=== PATIENT | female | born 1950 | race Caucasian/White ===

== ENCOUNTER 2017-04-13 19:56 | Emergency (ER) | payer MEDICARE, BC ==
[2017-04-13 20:06] VITALS: BP 177/78
--- NOTE | 2017-04-13 20:28 | UC ---
Ear Complaint HPI - HPI Summary HPI Summary: 66 year old female presents with complains of left facial erythema, tingling, eye swelling and scalp sensitivity. I will send her to the ER to rule out facial shingles. - History of Current Complaint Stated Complaint: EAR PAIN Time Seen by Provider: 04/13/17 20:01 Hx Obtained From: Patient Onset/Duration: Sudden Onset Severity Initially: Moderate Severity Currently: Moderate Pain Scale Used: 0-10 Numeric - 5 Aggravating Factors: Nothing Alleviating Factors: Nothing - Allergies/Home Medications Allergies/Adverse Reactions: Allergies Allergy/AdvReac Type Severity Reaction Status Date / Time No Known Allergies Allergy Verified 04/13/17 20:06 Home Medications: Home Medications Atenolol TAB* [Tenormin TAB* 50 MG] 100 mg PO DAILY 04/13/17 [History Confirmed 04/13/17] Hydrochlorothiazide TAB* [Hydrodiuril TAB*] 12.5 mg PO DAILY 04/13/17 [History Confirmed 04/13/17] Lisinopril TAB* [Prinivil TAB*] 40 mg PO DAILY 04/13/17 [History Confirmed 04/13] Pravastatin (NF) [Pravachol (NF)] 20 mg PO DAILY 04/13/17 [History Confirmed 09/28] PMH/Surg Hx/FS Hx/Imm Hx Previously Healthy: Yes - Family History Known Family History: Positive: None - Social History Alcohol Use: None Substance Use Type: None Review of Systems Constitutional: Negative Skin: Other - left facial/scalp/eye erythema, tingling, pain Eyes: Negative ENT: Negative Respiratory: Negative Cardiovascular: Negative Gastrointestinal: Negative Genitourinary: Negative Motor: Negative Neurovascular: Negative Musculoskeletal: Negative Neurological: Negative Psychological: Negative All Other Systems Reviewed And Are Negative: Yes Physical Exam Triage Information Reviewed: Yes Eye Exam: Normal ENT Exam: Normal Dental Exam: Normal Neck exam: Normal Neck: Positive: 1 Respiratory Exam: Normal Cardiovascular Exam: Normal Abdominal Exam: Normal Musculoskeletal Exam: Normal Neurological Exam: Normal Psychological Exam: Normal Skin: Positive: rashes - left facial/scalp/eye erythema, tingling, pain Ear Complaint Course/Dx - Differential Dx/Diagnosis Provider Diagnoses: left eye shingles Discharge - Discharge Plan Condition: Stable Disposition: HOME Patient Education Materials: [place] (ED) Referrals: Sae Wilkins MD [Primary Care Provider] - Additional Instructions: PATIENT SUGGESTED TO GO TO [facility] FOR Ophthalmology CONSULT TO RULE OUT ophthalmic herpes . On a side note I spoke to Dr Yi.
== END 2017-04-13 21:05 | disposition home or self-care (01) ==
LOC: UCCORT 19:56
DX: B02.30 Zoster ocular disease, unspecified (principal)
CPT/HCPCS: 99202; G0463

== ENCOUNTER 2018-10-21 14:31 | Emergency (ER) | payer MEDICARE, BC ==
[2018-10-21 14:57] VITALS: BP 178/89
--- NOTE | 2018-10-21 15:57 | UC ---
Skin Complaint HPI - HPI Summary HPI Summary: 68-year-old female comes in with a chief complaint of a laceration to her right knee. Patient was shaving in the shower this morning and she cut her right leg on the lateral aspect of the knee. Is an area that has varicose veins. Patient had a hard time stopping the bleeding. She's done direct pressure she applied a T shirt tied around it. Most recent dressing has kept it from bleeding she wonders if it needs any sutures. Not on any blood thinners. Feels well otherwise. - History of Current Complaint Chief Complaint: [place] Time Seen by Provider: 10/21/18 15:41 Stated Complaint: SKIN COMPLAINT (CUT LEG WHILE SHAVING) Pain Intensity: 0 - Allergy/Home Medications Allergies/Adverse Reactions: Allergies Allergy/AdvReac Type Severity Reaction Status Date / Time No Known Allergies Allergy Verified 10/21/18 14:57 PMH/Surg Hx/FS Hx/Imm Hx Previously Healthy: Yes Endocrine History: Dyslipidemia Cardiovascular History: Hypertension - Surgical History Surgical History: Yes Surgery Procedure, Year, and Place: x2 C sections - Family History Known Family History: Positive: None - Social History Alcohol Use: None Substance Use Type: None Smoking Status (MU): Never Smoked Tobacco Review of Systems All Other Systems Reviewed And Are Negative: Yes Constitutional: Positive: Negative Skin: Positive: Other - SEE HPI Eyes: Positive: Negative ENT: Positive: Negative Respiratory: Positive: Negative Cardiovascular: Positive: Negative Gastrointestinal: Positive: Negative Motor: Positive: Negative Neurovascular: Positive: Negative Musculoskeletal: Positive: Negative Neurological: Positive: Negative Psychological: Positive: Negative Is Patient Immunocompromised?: No Physical Exam Triage Information Reviewed: Yes Appearance: Well-Appearing, No Pain Distress, Well-Nourished Vital Signs: Initial Vital Signs Temp 98.6 F 10/21/18 14:52 Pulse 69 10/21/18 14:52 Resp 16 10/21/18 14:52 BP 178/89 10/21/18 14:52 Pulse Ox 100 10/21/18 14:52 Vital Signs Reviewed: Yes Eye Exam: Normal Eyes: Positive: Conjunctiva Clear Neck exam: Normal Neck: Positive: Supple Respiratory: Positive: No respiratory distress Musculoskeletal Exam: Normal Musculoskeletal: Positive: Strength Intact, ROM Intact Neurological Exam: Normal Neurological: Positive: Alert, Muscle Tone Normal Psychological Exam: Normal Psychological: Positive: Age Appropriate Behavior Skin: Positive: Other - On the right lateral knee patient on presentation has a dressing. We took her off patient has an area of varicosities approximately 1.5 x 2 cm in diameter. This is the area that was bleeding is no active bleeding at this time. Course/Dx - Course Course Of Treatment: Was no bleeding in clinic. Pressure dressing was placed by nursing patient neurovascular intact after placement of the pressure dressing. Overall plan would be to use a pressure dressing as needed. Reevaluate if worse or any other questions or concerns. - Diagnoses Provider Diagnosis: Laceration, Varicose vein of leg Discharge - Sign-Out/Discharge Documenting (check all that apply): Patient Departure All imaging exams completed and their final reports reviewed: No Studies - Discharge Plan Condition: Stable Disposition: HOME Patient Education Materials: Laceration (ED) Referrals: Sae Wilkins MD [Primary Care Provider] - Additional Instructions: APPLY A PRESSURE DRESSING NEEDED. FOLLOW UP WITH YOUR DOCTOR IF NOT COMPLETELY IMPROVED. GET RECHECKED FOR ANY WORSENING OF YOUR CONDITION OR QUESTIONS OR CONCERNS. - Billing Disposition and Condition Condition: STABLE Disposition: Home
== END 2018-10-21 16:08 | disposition home or self-care (01) ==
LOC: UCCORT 14:31
DX: S81.011A Laceration without foreign body, right knee, initial encounter (principal); I83.91 Asymptomatic varicose veins of right lower extremity; I10 Essential (primary) hypertension; W45.8XXA Other foreign body or object entering through skin, initial encounter; Y93.89 Activity, other specified; Y92.9 Unspecified place or not applicable
CPT/HCPCS: 99212; G0463